=== PATIENT | female | born 1965 | race Caucasian/White ===

== ENCOUNTER 2020-12-04 08:28 | Inpatient (IN) | payer OTHER, SELFPAY ==
[2020-12-04] VITALS (20 sets, daily range): BP systolic 81–138; BP diastolic 46–105; PULSE 52–128; RESP 10–21; TEMP 30.2–37; O2SAT 90–100; BMI 27.6
--- NOTE | ~2020-12-04 | XR_ITS ---
EXAMINATION: XR chest 1V portable DATE: 12/05/2020 05:34 INDICATION: Pneumonia TECHNIQUE: frontal view of the chest was obtained. COMPARISON: Chest radiograph dated 12/04/2020 FINDINGS: Increasing airspace opacity in the right upper lobe and new airspace opacities in the bilateral lower lobes consistent with worsening pneumonia. No pneumothorax or definitive pleural effusion. The cardi omediastinal silhouette is normal. Suture anchors project along the anterior rim of the right glenoid likely related to prior labral repair. IMPRESSION: 1. Worsening multifocal pneumonia. Reviewed, dictated and finalized at location A.
--- NOTE | ~2020-12-04 | XR_ITS ---
EXAMINATION: XR chest 1V portable DATE: 12/04/2020 10:42 INDICATION: Altered mental status. TECHNIQUE: A single frontal view of the chest was obtained. COMPARISON: Chest CT 07/02/2017, neck CT 12/04/2020 FINDINGS: There are mild airspace opacities in right upper lobe, consistent with pneumonia. No pleura l effusion or pneumothorax. The heart size is normal. There are suture anchors overlying right should er. IMPRESSION: 1. Mild right upper lobe pneumonia. Reviewed, dictated and finalized at location B.
--- NOTE | ~2020-12-04 | CT_ITS ---
EXAMINATION: CTA neck DATE: 12/04/2020 10:40 INDICATION: Neck injury. TECHNIQUE: Computed tomographic angiography (CTA) of the neck was performed with 100 mL Omnipaque-350 intravenous contrast. Automated exposure control and iterative reconstruction technique were employe d. The dose-length product was 509.17 mGy-cm. Maximum intensity projection 3D-reconstructions were cr eated by the technologist on a separate workstation. COMPARISON: Chest CT 07/02/2017 FINDINGS: There are patchy groundglass and airspace opacities in right upper lobe, consistent with pn eumonia. There are no pathologically enlarged lymph nodes. Left vertebral artery is dominant. There i s no significant stenosis of the vertebral arteries. There is mild plaque in the proximal internal ca rotid arteries. There is 0% stenosis of the proximal right internal carotid artery relative to normal distal artery lumen diameter (NASCET criteria). There is 0% stenosis of the proximal left internal c arotid artery relative to normal distal artery lumen diameter. There is moderate cervical spondylosis . IMPRESSION: 1. Mild right upper lobe pneumonia. 2. 0% stenosis of the proximal internal carotid arteries relative to normal distal artery lumen diame ters (NASCET criteria). Reviewed, dictated and finalized at location B. IMPRESSION: 1. Mild right upper lobe pneumonia. 2. 0% stenosis of the proximal internal carotid arteries relative to normal dis abdirizak artery lumen diameters (NASCET criteria).
--- NOTE | ~2020-12-04 | CT_ITS ---
EXAMINATION: CT brain wo con DATE: 12/04/2020 10:32 INDICATION: Altered mental status. TECHNIQUE: Computed tomography (CT) of the head was performed without intravenous contrast. The mA wa s adjusted according to patient size. Iterative reconstruction technique was employed. The dose-lengt h product was 605.33 mGy-cm. COMPARISON: None FINDINGS: There is no intracranial hemorrhage, acute infarction, or abnormal intracranial mass lesion . The ventricles are normal in size. The paranasal sinuses are clear. The orbits are normal. The mast oid air cells are normal. IMPRESSION: 1. Normal brain. Reviewed, dictated and finalized at location B. IMPRESSION: 1. Normal brain.
--- NOTE | 2020-12-04 08:33 | ECG_ITS ---
Measurements Intervals [place] Rate: 134 P: 212 NV: 171 QRS: 73 QRSD: 92 T: 50 QT: 320 QTc: 479 Interpretive Statements ECTOPIC ATRIAL TACHYCARDIA LOW QRS VOLTAGE IN PRECORDIAL LEADS ABNORMAL ECG Electronically Signed On 12-04-2020 11:29:51 CDT by Francisco Bernal D.O.
--- NOTE | 2020-12-04 08:38 | PC.NURSE ---
Aaron carter applied, IV fluid warmer being prepped. Pt unable to lie still, stating I'm so cold and I just want to . Difficult to get further information
[2020-12-04] MEDS: SODIUM CHLORIDE 0.9% IV 1,000 ML 999 ML IV CONT ×4 (08:55→23:11)
[2020-12-04 08:59] LABS: Base Excess ABG -22.8 mEq/l (+/-2.0); Fractional Inspired Oxygen 21 %; HCO3 ABG 7.9 mEq/l (22.0-26.0); Oxygen Content ABG 20.8 %vol (16.0-22.0); Oxygen Saturation ABG 97.7 % (95.0-100.0); Oxyhemoglobin 94.8 % THb (90.0-100.0); PCO2 ABG 33.7 mmHg (35.0-45.0); PO2 ABG 152.1 mmHg (80.0-100.0); Total Hemoglobin 15.4 g/dL (12.0-18.0)
[2020-12-04 09:02] LABS: Device ROOM AIR; Modified Allen's Test Pass; Site Drawn LEFT RADIAL
--- NOTE | 2020-12-04 09:02 | PC.NURSE ---
Addendum entered by Lsahawn Flores RN 12/04/20 09:03: Pt stating I took heroin , does not say how she took it Original Note: Per Dr. Dorantes NO sitter needed at this time.
--- NOTE | 2020-12-04 09:04 | PC.NURSE ---
x1 belonging bag placed in secured area. All clothing and jewelry removed from pt
[2020-12-04 09:12] LABS: Glucose Point of Care 303 (65-105)
[2020-12-04 09:17] LABS: Hematocrit 47.5 % (37.0-47.0); Hemoglobin 15.2 g/dL (12.0-15.0); Mean Corpuscular Hemoglobin 31.9 pg (26-34); Mean Corpuscular Volume 99.8 fl (80-100); Mean Platelet Volume 10.1 fl (7.4-10.4); Platelet Count Result 360 k/mm3 (150-375); Red Blood Count 4.76 M/mm3 (4.2-5.4); Red Cell Distribution Width 12.3 % (11.5-14.5); White Blood Count 32.4 K/mm3 (4.5-10.0)
[2020-12-04 09:21] LABS: Add Urine Microscopic? YES; Appearance Urine Cloudy (Clear); Bilirubin Urine Negative (Negative); Blood Urine Negative (Negative); Color Urine Yellow (Yellow); Glucose Urine UA Negative (Negative); Ketones Urine Trace mg/dL (Negative); Leukocyte Esterase Ur Negative LEU/UL (Negative); Mucus Urine Rare /lpf; Nitrate Urine Negative (Negative); Protein Urine 2+ mg/dL (Negative); Specific Grav Ur 1.026 (1.001-1.035); Squamous Epithelial Cell Urine Rare /hpf (Few); Urobilinogen Urine Negative mg/dL (<2.0)
[2020-12-04 09:26] LABS: Barbiturate Screen Urine Negative (Negative); Benzodiazepines Screen Urine Positive (Negative); Cannabinoid Screen Urine Positive (Negative); Cocaine Screen Urine Negative (Negative); Methadone Screen Urine Negative (Negative); Opiate Screen Urine Negative (Negative); Phencyclidine Screen Urine Negative (Negative)
[2020-12-04 09:30] LABS: Acetaminophen < 10 ug/mL (10-30); Ethanol < 10 mg/dL (<10); Salicylate < 1.0 mg/dL (2-20)
--- NOTE | 2020-12-04 09:30 | ED.GENADULT ---
HPI - General Adult General Chief complaint: Unspecified Stated complaint: HYPOTHERMIC Time Seen by Provider: 12/04/20 08:29 History of Present Illness HPI narrative: Patient is a 54-year-old female who presents ER after being found in a ditch altered. Patient found to be very cold to touch and concern for hypothermia noted by EMS. Patient was given Narcan 4 mg by police without response. Patient is awake and responsive to noxious stimuli. She speaks in full sentences but is altered. Related Data Home Medications Medication Instructions Recorded Confirmed No Home Medications 12/04/20 12/04/20 Allergies Allergy/AdvReac Type Severity Reaction Status Date / Time No Known Allergies Allergy Unverified 02/23/19 13:51 Review of Systems Review of Systems: ROS unobtainable: Yes unobtainable due to medical condition PMFSH Past Medical History Medical History Migraine Surgical History Surgical History Surgical history unknown Social History Social History Smoking packs per day: 1 Smoking cigarettes per day: 20.0 Smoking status: Current every day smoker Alcohol intake: never Substance use: current Substance use type: marijuana and methamphetamine Spiritual care concerns: No Exam Narrative: Exam Narrative: GENERAL: ill-appearing, well-nourished, and in mild distress. HEAD: Normocephalic, atraumatic. EYES: PERRL and EOMI. ENT: Dry mucous membranes NECK: Supple. Indentation from a necklace patient was wearing without bruising or breaks in blood vessels. No carotid bruit. CHEST: Clear to auscultation. No respiratory distress. HEART: Tachycardic and regular. Normal peripheral pulses. ABDOMEN: Soft, nontender, nondistended. EXTREMITIES: Normal range of motion. No edema. SKIN: Warm, dry, no rash. NEURO: Clear speech, has normal strength in all extremities moves them purposefully. No slurred speech or dysarthria when speaking. Alert and oriented x1. Course Reevaluation(s) Reevaluation #1: Evaluation of the patient reveals that she is awake alert and oriented x3. She is following commands well. Her core temperature is now 91.9 ?F. Bicarb drip is still not arrived she will give patient a push of 50 mEq of sodium bicarb. Patient receiving 30 mL/kg bolus and has received IV Zosyn and vancomycin. Date: 12/04/20 Time: 09:59 Reevaluation #2: Patient accepted to the ICU by Dr. Cheng. Patient will be given a second dose of sodium bicarb. Patient reports that she made an attempt to kill herself last night. Reports she got down into a ditch and attempted overdose on fentanyl. She reports she had been using methamphetamine days prior to this. Date: 12/04/20 Time: 11:05 Vital Signs Vital signs: Vital Signs Temperature 86.3 F L 12/04/20 08:29 Temperature 98.0 F 12/04/20 18:00 Pulse Rate 91 12/04/20 18:00 Respiratory Rate 12 12/04/20 18:00 Blood Pressure 83/55 L 12/04/20 18:00 Pulse Oximetry 100 12/04/20 18:00 Medical Decision Making Vital Signs Vital Signs: Vital Signs Temperature 86.3 F L 12/04/20 08:29 Temperature 98.0 F 12/04/20 18:00 Pulse Rate 91 12/04/20 18:00 Respiratory Rate 12 12/04/20 18:00 Blood Pressure 83/55 L 12/04/20 18:00 Pulse Oximetry 100 12/04/20 18:00 Lab Data Result diagrams: 12/04/20 09:11 12/04/20 12:52 Labs: Lab Results 12/04/20 12/04/20 12/04/20 Range/Units 08:51 09:01 09:01 WBC (4.5-10.0) K/mm3 RBC (4.2-5.4) M/mm3 Hgb (12.0-15.0) g/dL Hct (37.0-47.0) % MCV (80-100) fl MCH (26-34) pg MCHC (32-36) g/dl RDW (11.5-14.5) % Plt Count (150-375) k/mm3 MPV (7.4-10.4) fl Immature Gran % (Auto) Neut % (Auto) Lymph % (Auto) [place] % (Auto)
[2020-12-04 09:32] LABS: INR 1.1; Partial Thromboplastin Time 26.9 SECONDS (22.3-36.8)
[2020-12-04 09:37] LABS: Amphetamine Screen Urine Positive (Negative)
[2020-12-04 09:38] LABS: Albumin Level 4.9 g/dL (3.5-5.1); Alkaline Phosphatase 123 U/L (38-126); Anion Gap 20 mmol/L (8-16); Aspartate Amino Transferase 130 U/L (14-36); Bilirubin,Total 1.7 mg/dL (0.2-1.3); Blood Urea Nitrogen 16 mg/dL (7-17); Calcium 9.7 mg/dL (8.4-10.2); Carbon Dioxide 14 mmol/L (22-30); Chloride 105 mmol/L (98-107); Creatine Kinase 237 U/L (30-135); Estimated Glomerular Filt Rate 34; Glucose 282 mg/dL (65-105); Potassium 4.9 mmol/L (3.4-5.0); Sodium 139 mmol/L (137-145)
[2020-12-04 09:46] LABS: Lactic Acid Reflex > 12.0 mmol/L (0.7-2.1)
[2020-12-04] MEDS: SODIUM CHLORIDE 0.9% IV 2,200 ML/1,000 ML BAG 999 ML IV CONT (09:54)
--- NOTE | 2020-12-04 09:58 | PC.NURSE ---
Spoke with edp for clarification regarding bicarb order, verbal order for ivp sodium bicarb 8.4% stat.
[2020-12-04] MEDS: SODIUM BICARBONATE 8.4% 50 MEQ/50 ML SYRINGE IV PUSH ×2 (10:02→10:57)
--- NOTE | 2020-12-04 10:10 | PC.NURSE ---
Pt c/o nausea, verbal order from edp delisa for 4mg zofran ivp stat.
[2020-12-04] MEDS: ONDANSETRON INJ 4 MG/2 ML VIAL IV PUSH ×2 (10:13→14:04)
[2020-12-04 10:23] LABS: Band Neutrophils Percent 4 % (0-6); Eosinophils Absolute Manual 0.32 K/mm3 (0.02-0.5); Eosinophils Percent Manual 1 % (0-4); Lymphocytes Absolute Manual 4.86 K/mm3 (1.1-4.5); Monocytes Absolute Manual 1.62 K/mm3 (0.1-0.90); Monocytes Percent Manual 5 % (3-9); Neutrophils Absolute Manual 25.59 K/mm3 (1.7-7.2); Neutrophils Percent Manual 75 % (46-73); Platelet Estimate Adequate (Adequate); Total Cells Counted 100
--- NOTE | 2020-12-04 10:30 | PC.NURSE ---
Pt in ct
--- NOTE | 2020-12-04 10:31 | PC.NURSE ---
Pt belongings in bags (x3) and locked in cabinet in nurses station across from room4. ED charge hernán claudio.
[2020-12-04 10:35] LABS: Alanine Aminotransferase 148 U/L (4-35)
--- NOTE | 2020-12-04 11:20 | PC.NURSE ---
Non-labored respirations, even chest rise, easily arouses to stimuli. +Aaron hugger and warm blankets on pt. ST on monitor rate in 120's
--- NOTE | 2020-12-04 12:05 | PM.IMHP ---
H&P: HPI History of Present Illness Date/Time: 12/04/20 12:05 Chief Complaint: Altered mental status Narrative: 54 years old female was found in a ditch with altered mental status and hypothermia patient is poor historian patient was given 4 mg of Narcan by the police without improvement she was also found to be hypothermic patient still have intermittent confusion she said that she ingested medication trying to end her life as no one from her family still around patient claiming that she had fentanyl urine drug screen was positive for amphetamine and benzo patient was found to have lactic acidosis acute renal failure pneumonia and sepsis admitted for further evaluation and treatment Review of Systems Review of Systems: Narrative: Limited by current condition but complained of cough ROS unobtainable: Yes unobtainable due to medical condition PMFSH Past Medical History Medical History Migraine Surgical History Surgical History Surgical history unknown Social History Social History Smoking status: Current every day smoker Meds Home Medications and Allergies Allergies Allergy/AdvReac Type Severity Reaction Status Date / Time No Known Allergies Allergy Unverified 02/23/19 13:51 Vital Signs Vital Signs - 24 hr 12/04/20 08:29 12/04/20 08:50 12/04/20 09:28 Temperature 86.3 F L 88.2 F L Pulse Rate 89 103 H Respiratory Rate 21 H 19 Blood Pressure 138/105 H Pulse Oximetry 95 12/04/20 10:54 12/04/20 11:20 Temperature 94.8 F L 95.4 F L Pulse Rate 127 H 128 H Respiratory Rate 12 12 Blood Pressure 127/85 Pulse Oximetry 94 94 H&P: Results Labs Labs: Short CBC 12/04/20 Range/Units 09:11 WBC 32.4 H (4.5-10.0) K/mm3 Hgb 15.2 H (12.0-15.0) g/dL Hct 47.5 H (37.0-47.0) % Plt Count 360 (150-375) k/mm3 BMP 12/04/20 09:11 Sodium 139 Potassium 4.9 Chloride 105 Carbon Dioxide 14 L BUN 16 Creatinine 1.60 H Glucose 282 H Calcium 9.7 Cardiac Enzymes 12/04/20 Range/Units 09:11 Total Creatine Kinase 237 H (30-135) U/L Liver Function 12/04/20 Range/Units 09:11 Total Bilirubin 1.7 H (0.2-1.3) mg/dL AST 130 H (14-36) U/L ALT 148 H (4-35) U/L Alkaline Phosphatase 123 (38-126) U/L Albumin 4.9 (3.5-5.1) g/dL Urine 12/04/20 Range/Units 09:01 Urine Color Yellow (Yellow) Urine Appearance Cloudy H (Clear) Urine pH 5.0 (5.0-9.0) Ur Specific [place] 1.026 (1.001-1.035) Urine Protein 2+ H (Negative) mg/dL Urine Glucose (UA) Negative (Negative) mg/dL Assessment and Plan Assessment and plan (1) Metabolic acidosis: Code(s): E87.2 - Acidosis Status: Acute Assessment and Plan: Most likely related to hypoperfusion multifactorial secondary to lactic acidosis secondary to overdose hypothermia and pneumonia Treated with IV fluid IV antibiotics Patient will be admitted to ICU (2) Pneumonia: Code(s): J18.9 - Pneumonia, unspecified organism Status: Acute Assessment and Plan: Probable aspiration pneumonia continue broad-spectrum antibiotic re-evaluate in a.m. (3) Hypothermia: Code(s): T68.XXXA - Hypothermia, initial encounter Status: Acute Assessment and Plan: Associated with acute metabolic encephalopathy multifactorial secondary to overdose and hypoperfusion (4) Intentional opiate overdose: Code(s): T40.602A - Poisoning by unspecified narcotics, intentional self-harm, initial encounter Status: Acute Assessment and Plan: Counseling suicide precaution (5) Acute renal failure: Code(s): N17.9 - Acute kidney failure, unspecified Status: Acute Assessment and Plan: IV fluid (6) Abnormal LFTs: Code(s): R94.5 - Abnormal results
[2020-12-04 12:15] LABS: Reflex Lactic Acid Yes or No Add Lactic
--- NOTE | 2020-12-04 12:25 | ADMGEN ---
This patient, Rosa Villa, was admitted to Intensive Care Unit-9. Patient/family oriented to hospital policies and general routines including ID bracelet, bed and alarms, visiting hours, pain management, procedures, bathroom and other care routines, personal items, smoking policy, room service/diet, and visiting hours. Information on how to activate the Rapid Response Team has been discussed. Patient/Family are encouraged to report perceived risks to care and to ask questions if they do not understand what they are told or what they should do.
[2020-12-04 13:15] LABS: Lactic Acid Reflex 1.6 mmol/L (0.7-2.1)
--- NOTE | 2020-12-04 13:36 | WPDCNINT ---
Assessment and Plan Assessment and plan (1) Altered mental status: Code(s): R41.82 - Altered mental status, unspecified Status: Acute Assessment and Plan: Patient with altered mental status, likely related to polysubstance abuse, question of suicidal ideation/behavior -patient was given IV fluids, bicarbonate as patient was severely acidotic -currently patient is awake, alert, oriented x3, follows simple commands in all extremities (2) Intentional opiate overdose: Code(s): T40.602A - Poisoning by unspecified narcotics, intentional self-harm, initial encounter Status: Acute Assessment and Plan: Likely fentanyl overdose according to the patient. -manage nausea and vomiting -continue IV fluids (3) Metabolic acidosis: Code(s): E87.2 - Acidosis Status: Acute Assessment and Plan: Severe metabolic acidosis likely related to lactic acidosis, which could be related to being in the ditch for prolonged amount of time along with hypothermia -patient did receive bicarb pushes in the ER -continue bicarb infusion, will obtain BMP, if acidosis resolves there was switched to normal saline or LR fluids (4) Acute renal failure: Code(s): N17.9 - Acute kidney failure, unspecified Status: Acute Assessment and Plan: Acute kidney injury: Likely related to polysubstance abuse, hypothermia, elevated CK levels, hypovolemia -adequately fluid-resuscitated -lactic acidosis has resolved -will check renal function -continue monitor urine output and electrolytes (5) Pneumonia: Code(s): J18.9 - Pneumonia, unspecified organism Status: Acute Assessment and Plan: Chest x-ray shows possible right upper lobe pneumonia, could be related to aspiration -continue antibiotics -. Cultures have been obtained and pending (6) Abnormal LFTs: Code(s): R94.5 - Abnormal results of liver function studies Status: Acute Assessment and Plan: Hypovolemia, sepsis, hypothermia Will trend LFTs (7) Hypothermia: Code(s): T68.XXXA - Hypothermia, initial encounter Status: Acute Assessment and Plan: Hypothermia likely related to being in the ditch for prolonged amount of time. Patient currently on Aaron Hugger, body temperature is improving, will continue to monitor Additional Plan Discussed with patient updated with her condition and plan of care. I answered all questions Code status: Full code Critical care time spent: 42 minutes This dictation may have been done utilizing a voice recognition system. Attempts have been made to correct errors. However, there may be uncorrected grammatical, spelling, and recognition errors present. Due to a high probability of clinically significant, life threatening deterioration, the patient required my highest level of preparedness to intervene emergently and I personally spent this critical care time directly and personally managing the patient. This critical care time included obtaining a history; examining the patient; pulse oximetry; ordering and review of studies; arranging urgent treatment with development of a management plan; evaluation of patient's response to treatment; frequent reassessment; and discussions with other providers. It was exclusive of separately billable procedures and treating other patients and teaching time. Please see Assessment and Plan section and the rest of the note for further information on patient assessment and treatment Slip Cover Operator Consult Note Consult date: 12/04/20 Time Seen: 13:04 Reason for consult: Altered mental status, possible drug overdose, possible suicide behavior HPI: Rosa Villa is a 54 year old female with significant past medical history of migraine, tobacco use, polysubstance abuse presented the ED via EMS on 12/04/2020 after being found poorly responsive, hypothermic in a ditch. Police did give her Narcan 4 mg without improvement. According the medical records
[2020-12-04 13:39] LABS: Glucose Point of Care 86 (65-105)
[2020-12-04] MEDS: SODIUM BICARBONATE 8.4% 100 MEQ in WATER, STERILE FOR INJECTION 1,000 ML 50 MEQ IV CONT (13:59)
[2020-12-04 14:03] LABS: Alanine Aminotransferase 142 U/L (4-35); Albumin Level 3.5 g/dL (3.5-5.1); Alkaline Phosphatase 92 U/L (38-126); Anion Gap 5 mmol/L (8-16); Aspartate Amino Transferase 115 U/L (14-36); Bilirubin,Total 1.3 mg/dL (0.2-1.3); Blood Urea Nitrogen 17 mg/dL (7-17); Calcium 7.8 mg/dL (8.4-10.2); Carbon Dioxide 27 mmol/L (22-30); Chloride 107 mmol/L (98-107); Estimated CRCL calculation 59 ml/min; Estimated Glomerular Filt Rate 58; Glucose 82 mg/dL (65-105); Potassium 4.2 mmol/L (3.4-5.0); Sodium 139 mmol/L (137-145)
[2020-12-04] MEDS: SODIUM CHLORIDE 0.9% IV 1,000 ML 100 ML IV CONT (15:16)
[2020-12-04 18:19] LABS: Glucose Point of Care 72 (65-105)
[2020-12-04] MEDS: FAMOTIDINE 20 MG/2 ML VIAL IV PUSH (20:31)
[2020-12-04] MEDS: HEPARIN SODIUM 5,000 UNITS/ML VIAL 5000 UNITS SUB-Q (20:31)
[2020-12-04] MEDS: SODIUM CHLORIDE 0.9% IV 500 ML IV CONT (21:59)
[2020-12-05] VITALS (16 sets, daily range): BP systolic 86–112; BP diastolic 46–77; PULSE 75–94; RESP 13–20; TEMP 37.2–38.3; O2SAT 92–100; BMI 28.7
--- NOTE | 2020-12-05 04:29 | ECG_ITS ---
Measurements Intervals [place] Rate: 69 P: 60 NV: 143 QRS: 32 QRSD: 87 T: 72 QT: 404 QTc: 433 Interpretive Statements SINUS RHYTHM LOW QRS VOLTAGE IN PRECORDIAL LEADS BORDERLINE T WAVE ABNORMALITY- HIGH LATERAL LEADS BORDERLINE ECG Electronically Signed On 12-05-2020 6:58:24 CDT by Francisco Bernal D.O.
[2020-12-05 04:35] LABS: Basophils Percent Auto 0.4 % (0.2-1.2); Eosinophils Absolute Auto 0.1 K/mm3 (0-0.3); Hematocrit 33.4 % (37.0-47.0); Hemoglobin 10.7 g/dL (12.0-15.0); Immature Granulocyte Absolute 0.03 K/mm3 (0.00-0.031); Immature Granulocyte Percent A 0.3 % (0-0.5); Lymphocytes Absolute Auto 3.48 K/mm3 (0.9-3.2); Lymphocytes Percent Auto 33.7 % (18.3-44.2); Mean Corpuscular Hemoglobin 31.3 pg (26-34); Mean Corpuscular Volume 97.7 fl (80-100); Monocytes Absolute Auto 0.5 K/mm3 (0.1-0.6); Neutrophils Absolute Auto 6.2 K/mm3 (1.3-6.7); Neutrophils Percent Auto 59.6 % (45.5-73.1); Platelet Count Result 218 k/mm3 (150-375); Red Blood Count 3.42 M/mm3 (4.2-5.4); Red Cell Distribution Width 12.8 % (11.5-14.5); White Blood Count 10.3 K/mm3 (4.5-10.0)
[2020-12-05 04:47] LABS: Lactic Acid Reflex 1.2 mmol/L (0.7-2.1)
[2020-12-05 04:58] LABS: Alanine Aminotransferase 118 U/L (4-35); Albumin Level 3.1 g/dL (3.5-5.1); Alkaline Phosphatase 75 U/L (38-126); Anion Gap 3 mmol/L (8-16); Aspartate Amino Transferase 79 U/L (14-36); Bilirubin,Total 1.1 mg/dL (0.2-1.3); Blood Urea Nitrogen 11 mg/dL (7-17); CRP 1.9 mg/dL (<1.0); Carbon Dioxide 25 mmol/L (22-30); Chloride 108 mmol/L (98-107); Estimated CRCL calculation 65 ml/min; Estimated Glomerular Filt Rate > 60; Glucose 92 mg/dL (65-105); Magnesium 1.6 mg/dL (1.6-2.3); Phosphorus 2.8 mg/dL (2.5-4.5); Potassium 3.4 mmol/L (3.4-5.0); Sodium 136 mmol/L (137-145)
[2020-12-05 05:31] LABS: Troponin I 0.038 ng/mL (0.000-0.034)
[2020-12-05] MEDS: HEPARIN SODIUM 5,000 UNITS/ML VIAL 5000 UNITS SUB-Q ×2 (08:40→20:51)
[2020-12-05] MEDS: FAMOTIDINE 20 MG/2 ML VIAL IV PUSH ×2 (08:41→20:51)
[2020-12-05 08:46] LABS: Troponin I 0.044 ng/mL (0.000-0.034)
[2020-12-05 09:05] LABS: Alanine Aminotransferase 102 U/L (4-35); Albumin Level 2.8 g/dL (3.5-5.1); Alkaline Phosphatase 73 U/L (38-126); Anion Gap 1 mmol/L (8-16); Aspartate Amino Transferase 68 U/L (14-36); Blood Urea Nitrogen 9 mg/dL (7-17); Calcium 7.2 mg/dL (8.4-10.2); Carbon Dioxide 26 mmol/L (22-30); Chloride 108 mmol/L (98-107); Estimated CRCL calculation 66 ml/min; Estimated Glomerular Filt Rate > 60; Glucose 91 mg/dL (65-105); Potassium 3.3 mmol/L (3.4-5.0); Sodium 135 mmol/L (137-145)
[2020-12-05 09:34] LABS: Creatine Kinase MB 4.6 ng/mL (0.0-2.37)
--- NOTE | 2020-12-05 10:51 | PM.IMPN ---
Progress Note: A&P Assessment and Plan (1) Metabolic acidosis: Code(s): E87.2 - Acidosis Status: Acute Assessment and Plan: Most likely related to hypoperfusion multifactorial secondary to lactic acidosis secondary to overdose hypothermia and pneumonia Treated with IV fluid IV antibiotics Patient will be transferred to medical floor telemetry today (2) Pneumonia: Code(s): J18.9 - Pneumonia, unspecified organism Status: Acute Assessment and Plan: Probable aspiration pneumonia continue broad-spectrum antibiotic re-evaluate in a.m. (3) Hypothermia: Code(s): T68.XXXA - Hypothermia, initial encounter Status: Acute Assessment and Plan: Associated with acute metabolic encephalopathy multifactorial secondary to overdose and hypoperfusion improved (4) Intentional opiate overdose: Code(s): T40.602A - Poisoning by unspecified narcotics, intentional self-harm, initial encounter Status: Acute Assessment and Plan: Counseling suicide precaution (5) Acute renal failure: Code(s): N17.9 - Acute kidney failure, unspecified Status: Acute Assessment and Plan: Most likely related to hypoperfusion continue IV fluid (6) Abnormal LFTs: Code(s): R94.5 - Abnormal results of liver function studies Status: Acute Assessment and Plan: Most likely related to liver hypoperfusion monitor LFT acute hepatitis panel Subjective Date/time seen: 12/05/20 10:51 Interval history: Patient seen and examined Patient was admitted to the hospital was found unresponsive in a ditch hypothermic patient was given Narcan without improvement at the ER patient was found to have severe acidosis hypothermia pneumonia urine [place] drug screen was positive for polysubstance and patient admitted to suicidal attempt with overdose Patient feels weak Patient denies fever headache chest pain shortness of breath I am seeing the patient for metabolic acidosis Exam Narrative: Exam Narrative: Alert Chest no wheeze crackles Abdomen nontender nondistended CVS S1 + S2 Lower extremity edema Objective Data Vital Signs Vital Signs: Vital Signs - 24 hr 12/04/20 10:54 12/04/20 11:20 12/04/20 12:30 Temperature 94.8 F L 95.4 F L 96.1 F L Pulse Rate 127 H 128 H 102 H Respiratory Rate 12 12 10 L Blood Pressure 127/85 115/77 Pulse Oximetry 94 94 98 12/04/20 12:45 12/04/20 13:00 12/04/20 13:15 Temperature 96.3 F L 96.4 F L 96.6 F L Pulse Rate 98 98 97 Respiratory Rate 11 L 15 17 Blood Pressure 109/72 108/76 108/75 Pulse Oximetry 97 99 94 12/04/20 13:45 12/04/20 14:00 12/04/20 14:15 Temperature 97.0 F L 97.3 F L 97.6 F Pulse Rate 100 96 94 Respiratory Rate 18 15 Blood Pressure 92/52 L 91/46 L Pulse Oximetry 99 96 95 12/04/20 14:30 12/04/20 14:45 12/04/20 16:00 Temperature 97.6 F 97.6 F 97.6 F Pulse Rate 94 89 Respiratory Rate 12 12 Blood Pressure 87/55 L 91/53 L Pulse Oximetry 91 91 12/04/20 17:30 12/04/20 18:00 12/04/20 18:42 Temperature 98.0 F Pulse Rate 91 91 Respiratory Rate 12 Blood Pressure 83/55 L 83/55 L Pulse Oximetry 90 100 12/04/20 20:00 12/04/20 22:00 12/05/20 00:00 Temperature 98.2 F 98.6 F 98.9 F Pulse Rate 89 82 75 Respiratory Rate 13 13 20 Blood Pressure 90/54 L 81/50 L 86/58 L Pulse Oximetry 100 93 98 12/05/20 02:00 12/05/20 04:00 12/05/20 06:00 Temperature 99.4 F 100.1 F H 100.9 F H Pulse Rate 77 77 82 Respiratory Rate 15 15 15 Blood Pressure 91/58 L 109/77 112/58 L Pulse Oximetry 96 93 96 12/05/20 08:00 12/05/20 08:01 12/05/20 08:03 Temperature 100.9 F H Pulse Rate 86 86 Respiratory Rate 15 Blood Pressure 103/54 L Pulse Oximetry 97 100 12/05/20 10:00 Temperature 100.8 F H Pulse Rate 83 Respiratory Rate 16 Blood Pressure 96/46 L Pulse Oximetry 98 Intake/Output Intake/Output: Intake & Output 12/02/20 12/03/20 12/04/20 12/05/20 23:59 23:59 23:59 23:59 Intake Total
--- NOTE | 2020-12-05 11:12 | WPDINTPN ---
Progress Note: A&P Assessment and Plan (1) Altered mental status: Code(s): R41.82 - Altered mental status, unspecified Status: Acute Assessment and Plan: Patient with altered mental status, likely related to polysubstance abuse, question of suicidal ideation/behavior -patient was given IV fluids, bicarbonate as patient was severely acidotic -currently patient is awake, alert, oriented x3, follows simple commands in all extremities (2) Intentional opiate overdose: Code(s): T40.602A - Poisoning by unspecified narcotics, intentional self-harm, initial encounter Status: Acute Assessment and Plan: Likely fentanyl overdose according to the patient. -patient is medically stable -care coordination a and crisis management evaluate the patient (3) Metabolic acidosis: Code(s): E87.2 - Acidosis Status: Acute Assessment and Plan: Severe metabolic acidosis likely related to lactic acidosis, which could be related to being in the ditch for prolonged amount of time along with hypothermia -patient did receive bicarb pushes in the ER -metabolic acidosis has resolved, bicarbonate infusion has been discontinued - (4) Acute renal failure: Code(s): N17.9 - Acute kidney failure, unspecified Status: Acute Assessment and Plan: Acute kidney injury: Likely related to polysubstance abuse, hypothermia, elevated CK levels, hypovolemia -adequately fluid-resuscitated -lactic acidosis has resolved -will check renal function -continue monitor urine output and electrolytes (5) Pneumonia: Code(s): J18.9 - Pneumonia, unspecified organism Status: Acute Assessment and Plan: Chest x-ray this morning shows worsening infiltrates, could be related to aspiration -continue Zosyn and vancomycin -blood cultures have been obtained and pending (6) Abnormal LFTs: Code(s): R94.5 - Abnormal results of liver function studies Status: Acute Assessment and Plan: Hypovolemia, sepsis, hypothermia LFTs improving (7) Hypothermia: Code(s): T68.XXXA - Hypothermia, initial encounter Status: Acute Assessment and Plan: RESOLVED Hypothermia likely related to being in the ditch for prolonged amount of time. Additional Plan Discussed with patient updated with her condition and plan of care. Patient states she wants a job, she wants to live in an apartment and get her life back, she is looking for help. Will have aged or disabled care worker evaluate patient for placement and assist her permanent placement also Code status: Full code Critical care time spent: 33 minutes This dictation may have been done utilizing a voice recognition system. Attempts have been made to correct errors. However, there may be uncorrected grammatical, spelling, and recognition errors present. Due to a high probability of clinically significant, life threatening deterioration, the patient required my highest level of preparedness to intervene emergently and I personally spent this critical care time directly and personally managing the patient. This critical care time included obtaining a history; examining the patient; pulse oximetry; ordering and review of studies; arranging urgent treatment with development of a management plan; evaluation of patient's response to treatment; frequent reassessment; and discussions with other providers. It was exclusive of separately billable procedures and treating other patients and teaching time. Please see Assessment and Plan section and the rest of the note for further information on patient assessment and treatment Subjective Date/time seen: 12/05/20 11:12 Interval history: Reason for consult: Altered mental status, possible drug overdose, possible suicide behavior 12/05/2020: Patient seen and examined the ICU, more alert, awake, oriented x3. Patient answers to questions appropriately. Patient has a flat affect and looks depressed. Patient
[2020-12-05] MEDS: LORazepam INJ (*CRX) 2 MG/ML VIAL 0.5 MG IV PUSH (12:27)
[2020-12-05] MEDS: POTASSIUM CHLORIDE 20 MEQ TABLET 40 MEQ PO (12:33)
[2020-12-05] MEDS: POTASSIUM CHLORIDE 20 MEQ PACKET (FOR LIQUID) 40 MEQ PO (12:34)
[2020-12-05 12:56] LABS: Glucose Point of Care 84 (65-105)
[2020-12-05 13:26] LABS: Troponin I 0.043 ng/mL (0.000-0.034)
[2020-12-05 14:30] LABS: Hepatitis B Surface Antigen Negative (Negative)
[2020-12-05 14:36] LABS: HAV RESULT Negative (Negative); Hepatitis B Core IgM Result Negative (Negative)
[2020-12-05 14:50] LABS: Hepatitis C Virus Antibody Reactive (Negative)
[2020-12-05 17:04] LABS: SARS-CoV-2 RNA PCR Negative
[2020-12-05 20:25] LABS: Basophils Percent Auto 0.4 % (0.2-1.2); Eosinophils Absolute Auto 0.1 K/mm3 (0-0.3); Eosinophils Percent Auto 0.9 % (0-4.4); Hematocrit 35.8 % (37.0-47.0); Hemoglobin 11.9 g/dL (12.0-15.0); Immature Granulocyte Absolute 0.03 K/mm3 (0.00-0.031); Immature Granulocyte Percent A 0.4 % (0-0.5); Lymphocytes Absolute Auto 2.52 K/mm3 (0.9-3.2); Lymphocytes Percent Auto 29.8 % (18.3-44.2); Mean Corpuscular HGB Conc 33.2 g/dl (32-36); Mean Corpuscular Hemoglobin 32.2 pg (26-34); Mean Corpuscular Volume 96.8 fl (80-100); Mean Platelet Volume 10.2 fl (7.4-10.4); Monocytes Absolute Auto 0.5 K/mm3 (0.1-0.6); Monocytes Percent Auto 6.3 % (2.6-8.5); Neutrophils Absolute Auto 5.3 K/mm3 (1.3-6.7); Neutrophils Percent Auto 62.2 % (45.5-73.1); Platelet Count Result 208 k/mm3 (150-375); Red Cell Distribution Width 12.8 % (11.5-14.5); White Blood Count 8.5 K/mm3 (4.5-10.0)
[2020-12-05] MEDS: oxyCODONE HCL (*CRX) 5 MG TAB IR PO (21:40)
[2020-12-06] VITALS (12 sets, daily range): BP systolic 99–152; BP diastolic 53–90; PULSE 70–99; RESP 14–19; TEMP 36.9–37.7; O2SAT 97–100
[2020-12-06 05:16] LABS: Estimated CRCL calculation 73 ml/min; Estimated Glomerular Filt Rate > 60
[2020-12-06] MEDS: oxyCODONE HCL (*CRX) 5 MG TAB IR PO (06:24)
[2020-12-06] MEDS: HEPARIN SODIUM 5,000 UNITS/ML VIAL 5000 UNITS SUB-Q ×2 (08:36→20:24)
[2020-12-06] MEDS: FAMOTIDINE 20 MG/2 ML VIAL IV PUSH ×2 (08:36→20:24)
--- NOTE | 2020-12-06 10:55 | ECHO_ITS ---
Patient Info Name: Rosa Villa Age: 54 years : 1965 Gender: Female Ht: 66 in Wt: 172 lbs BSA: 1.92 m2 HR: 72 bpm BP: 152 / 90 mmHg Technical Quality: Good Exam Date: 12/06/2020 9:57 AM Exam Location: [facility] Pulmonary Exam Room: ICU 9 Patient Status: Inpatient Admit Date: 12/04/2020 Staff Ordering Physician: Gianni Balderas M.A., MD Title Clerk Automobile: Maryana Andrade RDCS Attending Provider: Gianni Balderas M.A., MD Referring Physician: Hari OVIEDO; Exam Type: CA echo doppler color flow Study Info Indications - elevated troponins Complete two-dimensional, color flow and Doppler transthoracic echocardiogram is performed. Summary 1. Complete two-dimensional, color flow and Doppler transthoracic echocardiogram is performed. 2. Left ventricular chamber dimension is normal. 3. Left ventricular systolic function is normal, estimated at 65-70%. 4. The left ventricular diastolic function is normal. 5. E/e' 9 is minimally elevated. 6. Global longitudinal strain is normal at -19.5%. 7. There is trace mitral valve regurgitation. 8. Mild pulmonary hypertension, estimated pulmonary arterial systolic pressure is 41 mmHg. Left Ventricle E/e' 9 is minimally elevated. Global longitudinal strain is normal at -19.5%. Left ventricular chamber dimension is normal. Left ventricular systolic function is normal, estimated at 65-70%. The left ventricular diastolic function is normal. Right Ventricle Right ventricular chamber dimension is normal. Right ventricular systolic function is normal. Left Atria Left atrial chamber dimension is normal. Right Atria Right atrial chamber dimension is normal. Aortic Valve The aortic valve is trileaflet. There is no aortic valve stenosis. There is no aortic valve regurgitation. Pulmonic Valve There is no pulmonic regurgitation. Mitral Valve There is no mitral valve stenosis. There is trace mitral valve regurgitation. Tricuspid Valve There is no tricuspid valve regurgitation. Mild pulmonary hypertension, estimated pulmonary arterial systolic pressure is 41 mmHg. Pericardium/Pleural There is no pericardial effusion. Inferior Vena Cava Normal inferior vena cava with >50% collapse upon inspiration consistent with normal right atrial pressure, 5 mmHg. Aorta The aortic root size at the sinus of Valsalva is normal. Left Ventricular Outflow Tract Name Value Normal LVOT 2D LVOT Diameter 2.0 cm LVOT Doppler LVOT Peak Gradient 7 mmHg LVOT Mean Gradient 4 mmHg LVOT VTI 23 cm LVOT VTI/AV VTI Ratio 0.7 LVOT Stroke Volume 74 ml LVOT CO 17.7 l/min LVOT CI 9.2 l/min/m2 Pulmonic Valve Name Value Normal PV Doppler
--- NOTE | 2020-12-06 11:03 | PM.IMPN ---
Progress Note: A&P Assessment and Plan (1) Metabolic acidosis: Code(s): E87.2 - Acidosis Status: Acute Assessment and Plan: Most likely related to hypoperfusion multifactorial secondary to lactic acidosis secondary to overdose hypothermia and pneumonia Treated with IV fluid IV antibiotics Patient will be transferred to medical floor telemetry today (2) Pneumonia: Code(s): J18.9 - Pneumonia, unspecified organism Status: Acute Assessment and Plan: Probable aspiration pneumonia DC IV vancomycin DC Zosyn started on Rocephin on 12/07/2019 3nd day of IV antibiotics. Expected total duration of antibiotics of 7 days with transition to oral antibiotic in the next 24-48 hours (3) Hypothermia: Code(s): T68.XXXA - Hypothermia, initial encounter Status: Acute Assessment and Plan: Associated with acute metabolic encephalopathy multifactorial secondary to overdose and hypoperfusion improved (4) Intentional opiate overdose: Code(s): T40.602A - Poisoning by unspecified narcotics, intentional self-harm, initial encounter Status: Acute Assessment and Plan: Counseling suicide precaution (5) Acute renal failure: Code(s): N17.9 - Acute kidney failure, unspecified Status: Acute Assessment and Plan: Most likely related to hypoperfusion treated with IV fluid repeat CMP today (6) Abnormal LFTs: Code(s): R94.5 - Abnormal results of liver function studies Status: Acute Assessment and Plan: Most likely related to liver hypoperfusion monitor LFT acute hepatitis panel (7) Elevated troponin: Code(s): R77.8 - Other specified abnormalities of plasma proteins Status: Acute Assessment and Plan: Most likely NSTEMI type 2 secondary to demand ischemia secondary to hypotension echo was ordered patient denies chest pain EKG was reviewed was borderline Subjective Date/time seen: 12/06/20 11:03 Interval history: Patient seen and examined Patient was admitted to the hospital was found unresponsive in a ditch hypothermic patient was given Narcan without improvement at the ER patient was found to have severe acidosis hypothermia pneumonia urine [place] drug screen was positive for polysubstance and patient admitted to suicidal attempt with overdose Patient feels better today Hypotension has resolved Denies chest pain or shortness of breath Still have intermittent cough Pending transfer to the floor Pending crisis psych evaluation Patient denies fever headache chest pain shortness of breath I am seeing the patient for metabolic acidosis Exam Narrative: Exam Narrative: Alert Chest no wheeze crackles Abdomen nontender nondistended CVS S1 + S2 Lower extremity edema Objective Data Vital Signs Vital Signs: Vital Signs - 24 hr 12/05/20 12:00 12/05/20 14:00 12/05/20 16:00 Temperature 100.8 F H Pulse Rate 79 88 94 Respiratory Rate 13 Blood Pressure 107/64 Pulse Oximetry 92 12/05/20 16:01 12/05/20 18:00 12/05/20 19:58 Temperature 100.4 F H Pulse Rate 94 90 Respiratory Rate 17 Blood Pressure 96/59 L Pulse Oximetry 100 96 12/05/20 20:00 12/05/20 22:00 12/06/20 00:00 Temperature 100.8 F H 99.8 F H Pulse Rate 90 85 84 Respiratory Rate 18 14 Blood Pressure 105/55 L 99/68 L Pulse Oximetry 98 97 12/06/20 02:00 12/06/20 04:00 12/06/20 05:57 Temperature 99.3 F Pulse Rate 76 99 72 Respiratory Rate 15 Blood Pressure 152/90 H Pulse Oximetry 100 12/06/20 08:00 Temperature 99.4 F Pulse Rate 70 Respiratory Rate 14 Blood Pressure 130/76 Pulse Oximetry 99 Intake/Output Intake/Output: Intake & Output 12/03/20 12/04/20 12/05/20 12/06/20 23:59 23:59 23:59 23:59 Intake Total 5584 4270 300 Output Total 1220 2100 2750 Balance 4360 4526 -5277 Meds/Results Medications: Active Medications Generic Name Dose Route Start Last Admin Trade Name Freq PRN Reason Stop Dose Admi
[2020-12-06 11:34] LABS: Basophils Percent Auto 0.4 % (0.2-1.2); Eosinophils Absolute Auto 0.1 K/mm3 (0-0.3); Eosinophils Percent Auto 1.6 % (0-4.4); Hematocrit 35.3 % (37.0-47.0); Hemoglobin 11.6 g/dL (12.0-15.0); Immature Granulocyte Absolute 0.02 K/mm3 (0.00-0.031); Immature Granulocyte Percent A 0.3 % (0-0.5); Lymphocytes Absolute Auto 1.71 K/mm3 (0.9-3.2); Lymphocytes Percent Auto 25.4 % (18.3-44.2); Mean Corpuscular HGB Conc 32.9 g/dl (32-36); Mean Corpuscular Hemoglobin 31.6 pg (26-34); Mean Corpuscular Volume 96.2 fl (80-100); Mean Platelet Volume 10.5 fl (7.4-10.4); Monocytes Absolute Auto 0.5 K/mm3 (0.1-0.6); Monocytes Percent Auto 7.7 % (2.6-8.5); Neutrophils Absolute Auto 4.4 K/mm3 (1.3-6.7); Neutrophils Percent Auto 64.6 % (45.5-73.1); Platelet Count Result 186 k/mm3 (150-375); Red Blood Count 3.67 M/mm3 (4.2-5.4); Red Cell Distribution Width 12.4 % (11.5-14.5); White Blood Count 6.7 K/mm3 (4.5-10.0)
[2020-12-06 11:40] LABS: Alanine Aminotransferase 80 U/L (4-35); Albumin Level 3.2 g/dL (3.5-5.1); Alkaline Phosphatase 77 U/L (38-126); Anion Gap 4 mmol/L (8-16); Aspartate Amino Transferase 44 U/L (14-36); Bilirubin,Total 0.9 mg/dL (0.2-1.3); Blood Urea Nitrogen 5 mg/dL (7-17); Calcium 8.6 mg/dL (8.4-10.2); Carbon Dioxide 28 mmol/L (22-30); Chloride 106 mmol/L (98-107); Estimated CRCL calculation 83 ml/min; Estimated Glomerular Filt Rate > 60; Glucose 188 mg/dL (65-105); Potassium 3.7 mmol/L (3.4-5.0); Sodium 138 mmol/L (137-145)
--- NOTE | 2020-12-06 13:43 | PC.NURSE ---
RN asked patient if she wanted to get cleaned up while in bathroom. Patient replied no she would just do it at home in the next few days. RN informed patient that she will still have to be evaluated by Crisis to deem placement for SI. Patient loudly stated You can't make me go anywhere if I don't want to. They don't do that anymore and it doesn't matter anyway, I'll still want to kill myself. It's a never ending cycle and nothing ever works. I end up in the same situation and back out on the streets. RN attempted to de-escalate patient by stating that it wasn't happening today so we will just leave it as is for now and deal with it when crisis comes to talk with her. Patient apologized, became tearful and returned to bed. Patient then asked for a nicotine patch. RN put a call out to Dr. Franklin the hospitalist and awaiting orders.
[2020-12-06] MEDS: LORazepam INJ (*CRX) 2 MG/ML VIAL 0.5 MG IV PUSH ×2 (16:32→20:32)
--- NOTE | 2020-12-06 16:38 | PC.NURSE ---
Patient agitated and yelling at staff; requesting a nicotine patch. RN notified Dr Balderas of patient request, received orders for 21 mg patch to start now. Assisted patient to the bathroom and patient tearful and stated I want to go to sleep and not wake up. I keep doing the same thing over and over again. I'm just sick of it. Assisted the patient back to bed and asked if she was anxious and offered Ativan for her anxiety.
[2020-12-06] MEDS: NICOTINE (*PBKC) 21 MG PATCH 1 PATCH TRANSDERM (18:17)
[2020-12-07] VITALS: PULSE 93
[2020-12-07] MEDS: LORazepam INJ (*CRX) 2 MG/ML VIAL 0.5 MG IV PUSH (00:28)
[2020-12-07 00:45] VITALS: BP 116/79; PULSE 84; RESP 17; O2SAT 100
[2020-12-07 04:00] VITALS: BP 129/71; PULSE 81; PULSE 84; RESP 16; TEMP 37; O2SAT 96
[2020-12-07 08:00] VITALS: BP 124/58; PULSE 74; PULSE 79; RESP 19; TEMP 36.8; O2SAT 99
[2020-12-07] MEDS: NICOTINE (*PBKC) 21 MG PATCH 1 PATCH TRANSDERM (09:31)
[2020-12-07] MEDS: HEPARIN SODIUM 5,000 UNITS/ML VIAL 5000 UNITS SUB-Q (09:50)
[2020-12-07] MEDS: LORazepam (*CRX) 0.5 MG TABLET PO ×2 (11:01→15:13)
[2020-12-07] MEDS: FAMOTIDINE 20 MG TABLET PO (11:01)
[2020-12-07 11:09] LABS: Basophils Absolute Auto 0.1 K/mm3 (0.0-0.1); Basophils Percent Auto 0.9 % (0.2-1.2); Eosinophils Absolute Auto 0.2 K/mm3 (0-0.3); Eosinophils Percent Auto 2.8 % (0-4.4); Hematocrit 36.8 % (37.0-47.0); Hemoglobin 12.8 g/dL (12.0-15.0); Immature Granulocyte Absolute 0.02 K/mm3 (0.00-0.031); Immature Granulocyte Percent A 0.3 % (0-0.5); Lymphocytes Absolute Auto 1.74 K/mm3 (0.9-3.2); Lymphocytes Percent Auto 27.4 % (18.3-44.2); Mean Corpuscular HGB Conc 34.8 g/dl (32-36); Mean Corpuscular Hemoglobin 31.6 pg (26-34); Mean Corpuscular Volume 90.9 fl (80-100); Mean Platelet Volume 10.2 fl (7.4-10.4); Monocytes Absolute Auto 0.5 K/mm3 (0.1-0.6); Monocytes Percent Auto 7.4 % (2.6-8.5); Neutrophils Absolute Auto 3.9 K/mm3 (1.3-6.7); Neutrophils Percent Auto 61.2 % (45.5-73.1); Platelet Count Result 225 k/mm3 (150-375); Red Blood Count 4.05 M/mm3 (4.2-5.4); Red Cell Distribution Width 11.9 % (11.5-14.5); White Blood Count 6.4 K/mm3 (4.5-10.0)
[2020-12-07 11:27] LABS: Alanine Aminotransferase 73 U/L (4-35); Albumin Level 3.6 g/dL (3.5-5.1); Alkaline Phosphatase 73 U/L (38-126); Anion Gap 0 mmol/L (8-16); Aspartate Amino Transferase 44 U/L (14-36); Bilirubin,Total 0.8 mg/dL (0.2-1.3); Blood Urea Nitrogen 6 mg/dL (7-17); Calcium 9.3 mg/dL (8.4-10.2); Carbon Dioxide 30 mmol/L (22-30); Chloride 107 mmol/L (98-107); Estimated CRCL calculation 95 ml/min; Estimated Glomerular Filt Rate > 60; Glucose 105 mg/dL (65-105); Potassium 4.4 mmol/L (3.4-5.0); Sodium 137 mmol/L (137-145)
[2020-12-07 12:00] VITALS: BP 118/77; PULSE 89; PULSE 91; RESP 13; O2SAT 98
[2020-12-07] MEDS: AMOXICILLIN/CLAVULANATE K 875-125 MG TAB 1 TABLET PO (15:14)
--- NOTE | 2020-12-07 15:23 | PM.DS ---
DS: Admitting Diagnosis Admitting Diagnosis Admitting Diagnosis: Altered mental status DS: Discharge Diagnosis Discharge Diagnosis (1) Metabolic acidosis: Code(s): E87.2 - Acidosis Status: Acute Assessment and Plan: Most likely related to hypoperfusion multifactorial secondary to lactic acidosis secondary to overdose hypothermia and pneumonia Treated with IV fluid and IV antibiotics (2) Pneumonia: Code(s): J18.9 - Pneumonia, unspecified organism Status: Acute Assessment and Plan: Probable aspiration pneumonia was on vanc/ zosyn now started on Rocephin on 12/07/2019 3nd day of IV antibiotics. transition to oral antibiotic (3) Hypothermia: Code(s): T68.XXXA - Hypothermia, initial encounter Status: Acute Assessment and Plan: Associated with acute metabolic encephalopathy multifactorial secondary to overdose and hypoperfusion improved (4) Intentional opiate overdose: Code(s): T40.602A - Poisoning by unspecified narcotics, intentional self-harm, initial encounter Status: Acute Assessment and Plan: Seen by the crisis team DC with suicide pact (5) Acute renal failure: Code(s): N17.9 - Acute kidney failure, unspecified Status: Resolved Assessment and Plan: Resolved with fluids (6) Abnormal LFTs: Code(s): R94.5 - Abnormal results of liver function studies Status: Acute Assessment and Plan: mildly elevated liver function (7) Elevated troponin: Code(s): R77.8 - Other specified abnormalities of plasma proteins Status: Acute Assessment and Plan: Most likely NSTEMI type 2 secondary to demand ischemia secondary to hypotension echo was ordered Left Ventricle E/e' 9 is minimally elevated. Global longitudinal strain is normal at -19.5%. Left ventricular chamber dimension is normal. Left ventricular systolic function is normal, estimated at 65-70%. The left ventricular diastolic function is normal. DS: Summary Hospital Course Hospital Course: As per admission note, 54 years old female was found in a ditch with altered mental status and hypothermia patient is poor historian patient was given 4 mg of Narcan by the police without improvement she was also found to be hypothermic patient still have intermittent confusion she said that she ingested medication trying to end her life as no one from her family still around patient claiming that she had fentanyl urine drug screen was positive for amphetamine and benzo patient was found to have lactic acidosis acute renal failure pneumonia and sepsis admitted for further evaluation and treatment. Pt appears medical stable seen by crisis team ok for discharge with suicide pact. Time Spent with Patient Time attestation: Total time spent providing and/or coordinating discharge services: 40 minutes on day of discharge Exam Narrative: Exam Narrative: Alert Chest clear Abdomen nontender nondistended CVS S1 + S2 Lower extremity edema DS: Data Data Completed and Pending Labs on day of discharge: Labs from last 24 hours 12/07/20 12/07/20 12/05/20 11:02 11:02 12:24 WBC 6.4 RBC 4.05 L Hgb 12.8 Hct 36.8 L MCV 90.9 D MCH 31.6 MCHC 34.8 RDW 11.9 Plt Count 225 MPV 10.2 Immature Gran % (Auto) 0.3 Neut % (Auto) 61.2 Lymph % (Auto) 27.4 [place] % (Auto) 7.4 Eos % (Auto) 2.8 Baso % (Auto) 0.9 Lymph # (Auto) 1.74 [place] # (Auto) 0.5 Eos # (Auto) 0.2 Baso # (Auto) 0.1 Abs Immat Gran (auto) 0.02 Absolute Neuts (auto) 3.9 Absolute Nucleated RBC 0.0 Nucleated RBC % 0.0 Sodium 137 Potassium 4.4 Chloride 107 Carbon Dioxide 30 Anion Gap 0 L BUN 6 L Creatinine 0.60 L Estim Creat Clear Calc 95 Estimated GFR > 60 Glucose 105 Calcium 9.3 Total Bilirubin 0.8 AST 44 H ALT 73 H Alkaline Phosphatase 73 Total Protein 7.0 Albumin 3.6 HC
[2020-12-07 16:00] VITALS: PULSE 84; RESP 15; O2SAT 98
[2020-12-14 08:21] LABS: Hepatitis C RNA, Quant PCR 694
== END 2020-12-07 17:45 | disposition home or self-care (01) | DRG 817 ==
LOC: ANHED 11:08 → ANHICU 12:03
PROVIDERS: Internal Medicine; Admitting Provider Internal Medicine; Emergency Provider Emergency Medicine; Visit Provider Family Medicine
DX: T40.602A Poisoning by unspecified narcotics, intentional self-harm, initial encounter (principal); G93.41 Metabolic encephalopathy; T68.XXXA Hypothermia, initial encounter; J18.9 Pneumonia, unspecified organism; E87.2 Acidosis; N17.9 Acute kidney failure, unspecified; X58.XXXA Exposure to other specified factors, initial encounter; R94.5 Abnormal results of liver function studies; F17.210 Nicotine dependence, cigarettes, uncomplicated; R77.8 Other specified abnormalities of plasma proteins; Z59.0 Homelessness
CPT/HCPCS: 36415; 36600; 70450; 70498; 71045; 80053; 80074; 80307; 81001; 82550; 82553; 82565; 82805; 82948; 83605; 83735; 84100; 84484; 85025; 85610; 85730; 86140; 87040; 87522; 93005; 93306; 96361; 96365; 96367; 96375; 96376; 99285; A9270; C9803; J0696; J1644; J2060; J2405; J2543; J3370; J7030; J7040; Q9967; U0003; U0005

== ENCOUNTER 2023-11-11 14:02 | Emergency (ER) | payer OTHER, SELFPAY ==
[2023-11-11 14:11] VITALS: BP 140/77; PULSE 101; RESP 18; TEMP 36.6; O2SAT 99
--- NOTE | 2023-11-11 14:15 | ED.FEMALEGU ---
HPI - Female Genitourinary General Chief complaint: Urogenital-Female Stated complaint: Poss UTI Source: patient and RN notes reviewed Mode of arrival: ambulatory Limitations: no limitations History of Present Illness HPI Narrative: 57-year-old female presented for complaint of concern for UTI. She endorses urinary frequency and urgency, with dark and cloudy urine with foul odor. Denies hematuria, nausea, vomiting, abdominal pain, flank pain, constipation, diarrhea, fevers or chills. Related Data Allergies Allergy/AdvReac Type Severity Reaction Status Date / Time No Known Allergies Allergy Verified 11/11/23 14:13 Review of Systems Review of Systems: CONSTITUTIONAL: Denies body aches, fever, chills, or sweats. CARDIOVASCULAR: Denies chest pain, palpitations, or edema. RESPIRATORY: Denies cough or dyspnea. GASTROINTESTINAL: Denies abdominal pain, nausea, vomiting, or diarrhea. GENITOURINARY: Reports frequency, urgency, denies dysuria, hematuria, flank pain SKIN: Denies rash, itching, or wounds. MUSCULOSKELETAL: Denies back pain or myalgia. [facility] Past Medical History Medical History Migraine Surgical History Surgical History Surgical history unknown Social History Social History Smoking packs per day: 1 Smoking cigarettes per day: 20.0 Smoking status: Current every day smoker Alcohol intake: never Substance use: current Substance use type: marijuana and methamphetamine Spiritual care concerns: No Comments At time of signature, I have reviewed and agree with nursing past medical, surgical, social and family history unless otherwise noted. Please see nursing chart for further information. There is no relevant family history pertinent to the presenting complaint Exam Narrative: GENERAL: Well-appearing ENT: Mucous membranes pink and moist. CHEST: No respiratory distress. Clear to auscultation. HEART: Regular rate and rhythm. ABDOMEN: Soft, nontender, nondistended, normal active bowel sounds. No CVA tenderness MUSC: Left posterior hip/low back tenderness with palpation SKIN: Warm, dry, no rash. NEURO: No focal deficits. Alert and oriented x3. Gait steady. PSYCH: Normal affect. Course Course Emergency Course: Patient is aware of diagnosis, understands and agrees to treatment plan. Anticipatory guidance given. Patient agrees to follow-up as directed and is aware of reasons to seek care at the emergency department. Portions of this record may have been created with voice recognition software Level of Care: Express Care Visit Vital Signs Vital signs: Vital Signs Temperature 97.9 F 11/11/23 14:11 Pulse Rate 101 H 11/11/23 14:11 Respiratory Rate 18 11/11/23 14:11 Blood Pressure 140/77 11/11/23 14:11 Pulse Oximetry 99 11/11/23 14:11 Oxygen Delivery Room Air 11/11/23 14:11 Temperature 97.9 F 11/11/23 14:11 Pulse Rate 101 H 11/11/23 14:11 Respiratory Rate 18 11/11/23 14:11 Blood Pressure 140/77 11/11/23 14:11 Pulse Oximetry 99 11/11/23 14:11 Oxygen Delivery Room Air 11/11/23 14:11 Reviewed MDM - Female Genitourinary MDM Narrative Medical decision making narrative: Discussed physical exam findings and urine dip result. Advised supportive measures and signs/symptoms to go to the ER. Pt is appropriate for outpt treatment and f/u. Differential Diagnosis Differential diagnosis: Likely urinary tract infection, vaginitis and cystitis Discharge Plan Discharge Clinical Impression: Urinary tract infection Patient Disposition: Home, Self-Care Condition: Stable Instructions: Antibiotic Form, Urinary Tract Infection in Women (ED) Additional Instructions: Take the antibiotic as prescribed The urine will be sent of for a culture to identify what type of bacteria
== END 2023-11-11 14:31 | disposition home or self-care (01) ==
PROVIDERS: Emergency Provider Nurse Practitioner Family
DX: N39.0 Urinary tract infection, site not specified (principal); B96.20 Unspecified Escherichia coli [E. coli] as the cause of diseases classified elsewhere; F17.210 Nicotine dependence, cigarettes, uncomplicated; F12.90 Cannabis use, unspecified, uncomplicated; F15.90 Other stimulant use, unspecified, uncomplicated
CPT/HCPCS: 81003; 87077; 87086; 87088; 87186; 99213; G0463

== ENCOUNTER 2023-12-10 18:50 | Emergency (ER) | payer OTHER, SELFPAY ==
--- NOTE | ~2023-12-10 | XR_ITS ---
EXAMINATION: XR chest 2V DATE: 12/10/2023 20:15 INDICATION: Cough and fever. TECHNIQUE: Frontal and lateral views of the chest were obtained. COMPARISON: Chest single view 12/05/2020 FINDINGS: There is no pneumonia, pleural effusion, or pneumothorax. The heart size is normal. There a re suture anchors in right scapula. Surgical clips in the right upper quadrant are likely from cholec ystectomy. IMPRESSION: 1. No acute cardiopulmonary disease. Reviewed, dictated and finalized at location E.
[2023-12-10 18:51] VITALS: BP 148/80; PULSE 96; RESP 18; TEMP 38.2; O2SAT 96
[2023-12-10 19:49] LABS: Influenza A QL RT-PCR Negative (Negative); Influenza B QL RT-PCR Negative (Negative); RSV RNA, RT-PCR Negative (Negative); SARS-CoV-2 RNA PCR Negative (Negative)
--- NOTE | 2023-12-10 19:59 | ED.GENADULT ---
HPI - General Adult General Chief complaint: Headache Stated complaint: Not feeling well Time Seen by Provider: 12/10/23 19:32 History of Present Illness HPI narrative: Is a 57-year-old female who presents emergency department chief complaint of generalized malaise. Patient reports for last several days she has had headache a dry cough and had body aches. The patient also reports she was recently treated for urinary tract infection hand reports she completed the antibiotics per reports that she may be having some dysuria as well. Patient reports that she has not had Tylenol this afternoon Related Data Allergies Allergy/AdvReac Type Severity Reaction Status Date / Time No Known Allergies Allergy Verified 12/10/23 18:55 Review of Systems Review of Systems: A 10 system review of systems was completed on the patient and is negative except for what is stated in the HPI. Nursing and ancillary documentation was reviewed. PMFSH Past Medical History Medical History Migraine Surgical History Surgical History Surgical history unknown Social History Social History Smoking packs per day: 1 Smoking cigarettes per day: 20.0 Smoking status: Current every day smoker Alcohol intake: never Substance use: current Substance use type: marijuana and methamphetamine Spiritual care concerns: No Exam Narrative: GENERAL: Well-appearing, well-nourished, and in no acute distress. HEAD: Normocephalic, atraumatic. EYES: PERRLA and EOMI. ENT: Nares clear, no rhinorrhea or epistaxis. Mucous membranes moist. NECK: Supple. CHEST: Clear to auscultation. No respiratory distress. HEART: Regular rate and rhythm. No murmur heard. Normal peripheral pulses. ABDOMEN: Soft, nontender, nondistended, normal active bowel sounds. EXTREMITIES: Normal range of motion. No edema. SKIN: Warm, dry, no rash. NEURO: No focal deficits. Alert and oriented x3. PSYCH: Normal mood and affect. Course Vital Signs Vital signs: Vital Signs Temperature 38.2 C H 12/10/23 18:51 Pulse Rate 96 12/10/23 18:51 Respiratory Rate 18 12/10/23 18:51 Blood Pressure 148/80 H 05/16/24 18:51 Pulse Oximetry 96 12/10/23 18:51 Oxygen Delivery Room Air 12/10/23 18:51 Temperature 38.2 C H 12/10/23 18:51 Pulse Rate 96 12/10/23 20:42 Respiratory Rate 15 12/10/23 20:42 Blood Pressure 132/65 12/10/23 20:42 Pulse Oximetry 98 12/10/23 20:42 Oxygen Delivery Room Air 12/10/23 18:51 Medical Decision Making [facility] Narrative Medical decision making narrative: Differential diagnosis UTI, viral syndrome, COVID, flu, CP, pneumonia Laboratory studies were obtained on the patient which showed a urinalysis that was within normal limits COVID flu RSV were negative chest x-ray showed no focal infiltrate Vital Signs Vital Signs: Vital Signs Temperature 38.2 C H 12/10/23 18:51 Pulse Rate 96 12/10/23 18:51 Respiratory Rate 18 12/10/23 18:51 Blood Pressure 148/80 H 12/10/23 18:51 Pulse Oximetry 96 12/10/23 18:51 Oxygen Delivery Room Air 12/10/23 18:51 Temperature 38.2 C H 12/10/23 18:51 Pulse Rate 96 12/10/23 20:42 Respiratory Rate 15 12/10/23 20:42 Blood Pressure 132/65 12/10/23 20:42 Pulse Oximetry 98 12/10/23 20:42 Oxygen Delivery Room Air 12/10/23 18:51 Lab Data Labs: Lab Results 12/10/23 12/10/23 12/10/23 Range/Units 19:00 20:04 22:35 Lactic Acid 1.4 (0.7-2.0) mmol/L Urine Color Yellow (Yellow) Urine Appearance Clear (Clear) Urine pH 6.5 (5.0-9.0) Ur Specific [place] 1.014 (1.001-1.035) Urine Protein Negative (Negative) mg/dL Urine Glucose (UA) Negative (Negative) mg/dL Urine Ketones Negative (Negative) mg/dL Ur Blood (Man) Negativ
[2023-12-10] MEDS: ACETAMINOPHEN 500 MG TABLET 1000 MG PO (20:07)
[2023-12-10 20:35] LABS: Add Urine Microscopic? NO; Appearance Urine Clear (Clear); Bilirubin Urine Negative (Negative); Blood Urine Negative (Negative); Color Urine Yellow (Yellow); Glucose Urine UA Negative (Negative); Ketones Urine Negative (Negative); Leukocyte Esterase Ur Negative LEU/UL (Negative); Nitrate Urine Negative (Negative); Protein Urine Negative (Negative); Specific Grav Ur 1.014 (1.001-1.035); pH Urine 6.5 (5.0-9.0)
[2023-12-10 20:42] VITALS: BP 132/65; PULSE 96; RESP 15; O2SAT 98
--- NOTE | 2023-12-10 21:02 | PC.NURSE ---
Told by RN that pt left without paperwork, and IV still in place. Attempted to call pt on phone number listed which was turned off. Called Dandre IGNACIO, gave description and address on chart. However, pt was picked up in a truck in [place] upon arrival by EMS. Olga to call Louann IGNACIO as well since pt likely left on foot, is homeless and known drug use.
--- NOTE | 2023-12-10 21:06 | PC.NURSE ---
Pt left the ED prior to receiving discharge paperwork and instructions and with IV still in her left AC. This RN notified Louann IGNACIO.
[2023-12-10 23:01] LABS: Lactic Acid Reflex 1.4 mmol/L (0.7-2.0)
[2023-12-11 00:17] LABS: Procalcitonin 0.1 ng/mL
== END 2023-12-10 20:55 | disposition home or self-care (01) ==
PROVIDERS: Emergency Medicine; Emergency Provider Emergency Medicine
DX: B34.9 Viral infection, unspecified (principal); Z20.822 Contact with and (suspected) exposure to COVID-19; F17.210 Nicotine dependence, cigarettes, uncomplicated
CPT/HCPCS: 36415; 71046; 81003; 83605; 84145; 87637; 99283; A9270

== ENCOUNTER 2023-12-10 22:25 | Emergency (ER) | payer OTHER, SELFPAY ==
[2023-12-10 22:33] VITALS: BP 101/61; PULSE 88; RESP 22; TEMP 36.3; O2SAT 99
--- NOTE | 2023-12-10 22:33 | ECG_ITS ---
SEE SCANNED COPY FOR CONFIRMED REPORT MTDD
[2023-12-10] MEDS: ASPIRIN 81 MG CHEWABLE TABLET 324 MG PO (22:49)
[2023-12-10 22:53] LABS: Basophils Absolute Auto 0.1 K/mm3 (0.0-0.1); Basophils Percent Auto 0.7 % (0.2-1.2); Eosinophils Percent Auto 0.4 % (0-4.4); Hemoglobin 15.1 g/dL (12.0-15.0); Immature Granulocyte Absolute 0.03 K/mm3 (0.00-0.031); Immature Granulocyte Percent A 0.4 % (0-0.5); Lymphocytes Absolute Auto 2.89 K/mm3 (0.9-3.2); Mean Corpuscular HGB Conc 34.3 g/dl (32-36); Mean Corpuscular Hemoglobin 31.3 pg (26-34); Mean Corpuscular Volume 91.3 fl (80-100); Mean Platelet Volume 10.8 fl (7.4-10.4); Monocytes Absolute Auto 0.9 K/mm3 (0.1-0.6); Monocytes Percent Auto 10.5 % (2.6-8.5); Neutrophils Absolute Auto 4.4 K/mm3 (1.3-6.7); Platelet Count Result 237 k/mm3 (150-375); Red Blood Count 4.82 M/mm3 (4.2-5.4); Red Cell Distribution Width 13.2 % (11.5-14.5); White Blood Count 8.3 K/mm3 (4.5-10.0)
[2023-12-10 23:02] LABS: Alanine Aminotransferase 166 U/L (6-35); Albumin Level 4.5 g/dL (3.5-5.1); Alkaline Phosphatase 112 U/L (38-126); Anion Gap 8 mmol/L (4-12); Aspartate Amino Transferase 83 U/L (14-36); Bilirubin,Total 0.8 mg/dL (0.2-1.3); Blood Urea Nitrogen 13 mg/dL (7-17); Calcium 8.7 mg/dL (8.4-10.2); Carbon Dioxide 21 mmol/L (22-30); Chloride 109 mmol/L (98-107); Estimated CRCL calculation 41 ml/min; Estimated Glomerular Filt Rate 43; Glucose 122 mg/dL (65-110); Lipase 193 U/L (23-300); Potassium 3.7 mmol/L (3.4-5.0); Sodium 138 mmol/L (137-145)
[2023-12-10 23:08] LABS: Partial Thromboplastin Time 25.7 Seconds (22.3-36.8); Prothrombin Time 13.5 Seconds (11.1-14.7)
--- NOTE | 2023-12-10 23:08 | ED.GENADULT ---
HPI - General Adult General Chief complaint: Nausea/Vomiting/Diarrhea Stated complaint: vomiting Time Seen by Provider: 12/10/23 22:33 History of Present Illness HPI narrative: Patient 57-year-old female seen earlier today for viral syndrome that presents emergency department today complaining of shortness of breath and nausea vomiting. The patient reports that she left and was in her vehicle and started having nausea and vomiting and then felt some tightness in her chest. Patient reports that she still feels nauseated at this time but denies abdominal pain Related Data Allergies Allergy/AdvReac Type Severity Reaction Status Date / Time No Known Allergies Allergy Verified 12/10/23 18:55 Review of Systems Review of Systems: A 10 system review of systems was completed on the patient and is negative except for what is stated in the HPI. Nursing and ancillary documentation was reviewed. PMFSH Past Medical History Medical History Migraine Surgical History Surgical History Surgical history unknown Social History Social History Smoking packs per day: 1 Smoking cigarettes per day: 20.0 Smoking status: Current every day smoker Alcohol intake: never Substance use: current Substance use type: marijuana and methamphetamine Spiritual care concerns: No Exam Narrative: GENERAL: Well-appearing, well-nourished, and in no acute distress. HEAD: Normocephalic, atraumatic. EYES: PERRLA and EOMI. ENT: Nares clear, no rhinorrhea or epistaxis. Mucous membranes moist. NECK: Supple. CHEST: Clear to auscultation. No respiratory distress. HEART: Regular rate and rhythm. No murmur heard. Normal peripheral pulses. ABDOMEN: Soft, nontender, nondistended, normal active bowel sounds. EXTREMITIES: Normal range of motion. No edema. SKIN: Warm, dry, no rash. NEURO: No focal deficits. Alert and oriented x3. PSYCH: Normal mood and affect. Course Vital Signs Vital signs: Vital Signs Temperature 36.3 C L 12/10/23 22:33 Pulse Rate 88 12/10/23 22:33 Respiratory Rate 22 H 12/10/23 22:33 Blood Pressure 101/61 12/10/23 22:33 Pulse Oximetry 99 12/10/23 22:33 Oxygen Delivery Room Air 12/10/23 22:33 Temperature 36.3 C L 12/10/23 22:33 Pulse Rate 73 12/11/23 00:34 Respiratory Rate 16 12/11/23 00:34 Blood Pressure 106/64 12/11/23 00:34 Pulse Oximetry 99 12/11/23 00:34 Oxygen Delivery Room Air 12/10/23 22:33 Medical Decision Making [facility] Narrative Medical decision making narrative: Differential diagnosis includes viral syndrome, ACS, gastroenteritis, EKG showed no acute ischemic changes laboratory studies were obtained which showed a white count of 8.3 electrolytes showed a creatinine 1.3 AST and ALT were slightly elevated at 83 and 166 these were previously elevated on previous labs troponin was less than 0.73906 hour and 3 hour lipase was 193 The patient received IV fluids and antiemetics and is feeling much better at this point Vital Signs Vital Signs: Vital Signs Temperature 36.3 C L 12/10/23 22:33 Pulse Rate 88 12/10/23 22:33 Respiratory Rate 22 H 12/10/23 22:33 Blood Pressure 101/61 12/10/23 22:33 Pulse Oximetry 99 12/10/23 22:33 Oxygen Delivery Room Air 12/10/23 22:33 Temperature 36.3 C L 12/10/23 22:33 Pulse Rate 73 12/11/23 00:34 Respiratory Rate 16 12/11/23 00:34 Blood Pressure 106/64 12/11/23 00:34 Pulse Oximetry 99 12/11/23 00:34 Oxygen Delivery Room Air 12/10/23 22:33 Lab Data 12/10/23 22:43 12/10/23 22:43 Labs: Lab Results 12/10/23 Range/Units 22:43 WBC 8.3 (4.5-10.0) K/mm3 RBC 4.82 (4.2-5.4) M/mm3 Hgb 15.1 H (12.0-15.0) g/dL Hct 44.0 (37.0-47.0) % MCV 91.3 (80-100) f
[2023-12-10 23:11] VITALS: BP 109/61; PULSE 86; RESP 14; O2SAT 99
[2023-12-10 23:14] LABS: Troponin I < 0.012 ng/mL (0.000-0.034)
[2023-12-10 23:39] VITALS: BP 103/68; PULSE 80; RESP 15; O2SAT 100
[2023-12-10 23:45] VITALS: PULSE 81; RESP 16; O2SAT 98
[2023-12-10 23:46] VITALS: BP 91/72; PULSE 81; RESP 21; O2SAT 98
[2023-12-11] VITALS (33 sets, daily range): BP systolic 84–109; BP diastolic 51–87; PULSE 71–89; RESP 9–22; O2SAT 97–100
[2023-12-11] MEDS: ONDANSETRON INJ 4 MG/2 ML VIAL (04:42)
[2023-12-11] MEDS: SODIUM CHLORIDE 0.9% IV 1,000 ML 999 ML ×2 (04:42)
[2023-12-11 05:15] LABS: Troponin I < 0.012 ng/mL (0.000-0.034)
[2023-12-11 05:25] LABS: Add Urine Microscopic? YES; Appearance Urine Clear (Clear); Bacteria Urine 1+ /hpf; Bilirubin Urine Negative (Negative); Blood Urine Negative (Negative); Color Urine Yellow (Yellow); Glucose Urine UA Negative (Negative); Ketones Urine Negative (Negative); Leukocyte Esterase Ur Negative LEU/UL (Negative); Nitrate Urine Negative (Negative); Protein Urine Negative (Negative); RBC Urine 0-2 /hpf (0-2); Specific Grav Ur 1.007 (1.001-1.035); Squamous Epithelial Cell Urine None Seen /hpf (Few); Urobilinogen Urine 0.2 mg/dL (<2.0); WBC Urine 0-5 /hpf (0-3); pH Urine 6.5 (5.0-9.0)
[2023-12-11 05:52] LABS: Amphetamine Screen Urine Negative (Negative); Barbiturate Screen Urine Negative (Negative); Benzodiazepines Screen Urine Negative (Negative); Cannabinoid Screen Urine Positive (Negative); Cocaine Screen Urine Negative (Negative); Methadone Screen Urine Negative (Negative); Opiate Screen Urine Negative (Negative); Phencyclidine Screen Urine Negative (Negative)
== END 2023-12-11 04:57 | disposition home or self-care (01) ==
PROVIDERS: Emergency Provider Emergency Medicine
DX: B34.9 Viral infection, unspecified (principal); R11.2 Nausea with vomiting, unspecified; R07.89 Other chest pain; F17.210 Nicotine dependence, cigarettes, uncomplicated; R94.31 Abnormal electrocardiogram [ECG] [EKG]
CPT/HCPCS: 36415; 71046; 80053; 80307; 81001; 81003; 83605; 83690; 84145; 84484; 85025; 85610; 85730; 87637; 93005; 96374; 99284; A9270; J2405; J7030